=== PATIENT | male | born 1985 | race Caucasian/White ===

== ENCOUNTER 2017-09-16 21:48 | Emergency (ER) | payer MEDICAID ==
[~2017-09-16] VITALS: Ht 170.2 cm; Wt 86.2 kg
[2017-09-16 21:52] VITALS: BP 152/90
--- NOTE | 2017-09-16 22:01 | NUR ---
AMBULATED TO ER BED 3
--- NOTE | 2017-09-16 22:10 | NUR ---
31/M CAME IN W C/O COUGH, RUNNNY NOSE, FEVER, AND SORE THROAT X 1 WEEK. PT STATES HE HAD PINK-TINGED SPUTUM TODAY X 4. PT CURRENTLY AFEBRILE. ALL LUNG SOUNDS CBTA, 20RR EVEN AND UNLABORED. DENIES SOB/CP, ANY PAIN AT THIS TIME. DENIES OTHER PMH/RX, TOOK ADVIL YESTERDAY FOR FEVER WITH RELIEF OF SYMTPOMS.
--- NOTE | 2017-09-16 23:32 | NUR ---
Patient discharged with v/s stable. Written and verbal after care instructions given and explained. Patient alert, oriented and verbalized understanding of instructions. Ambulatory with steady gait. All questions addressed prior to discharge. ID band removed. Patient advised to follow up with PMD. Rx of TESSALON PERLES AND CODEINE/PROMETHAZINE given. Patient educated on indication of medication including possible reaction and side effects. Opportunity to ask questions provided and answered.
[2017-09-16 23:47] VITALS: BP 141/90
== END 2017-09-16 23:32 | disposition home or self-care (01) ==
LOC: MED 21:48
DX: J06.9 Acute upper respiratory infection, unspecified (principal)
CPT/HCPCS: 71045; 99283

== ENCOUNTER 2018-04-22 18:07 | Emergency (ER) | payer SELFPAY ==
[~2018-04-22] VITALS: Ht 172.7 cm; Wt 89.4 kg
[2018-04-22 18:09] VITALS: BP 120/78
--- NOTE | 2018-04-22 18:19 | NUR ---
PT AMBULATED WITH FAMILY TO ER LOBBY , WAITING FOR AN OPEN ER BED.
--- NOTE | 2018-04-22 19:45 | NUR ---
PATIENT IS A 32 Y/O MALE WHO PRESENTS TO THE ED C/O DIARRHEA. PT REPORTS THAT IT HAS BEEN GOING ON X3 DAYS. PT REPORTS 7/10 ACHING UPPER ABD PAIN THAT DOES NOT RADIATE. PT DENIES CP, SOB, REPORTS DIARRHEA DENIES NAUSEA/VOMITING. PT AWAKE AND ALERT, RR EVEN/UNLABORED. PT REPOSITIONED FOR COMFORT, BED IN LOWEST POSITION. ER MD DR. STREETER NOTIFIED. WILL CONTINUE TO MONITOR.
--- NOTE | 2018-04-22 20:01 | NUR ---
Dr. Carrasquillo evaluating patient at bedside.
--- NOTE | 2018-04-22 21:07 | NUR ---
Patient discharged with v/s stable. Written and verbal after care instructions given and explained. Patient alert, oriented and verbalized understanding of instructions. Ambulatory with steady gait. All questions addressed prior to discharge. ID band removed. Patient advised to follow up with PMD. Rx of FLAGYL given. Patient educated on indication of medication including possible reaction and side effects. Opportunity to ask questions provided and answered.
[2018-04-22 21:14] VITALS: BP 110/59
== END 2018-04-22 21:07 | disposition home or self-care (01) ==
LOC: MED 18:07
DX: R19.7 Diarrhea, unspecified (principal)
CPT/HCPCS: 99283

== ENCOUNTER 2018-08-05 09:11 | Emergency (ER) | payer SELFPAY ==
[~2018-08-05] VITALS: Ht 180.3 cm; Wt 75.7 kg
[2018-08-05 09:21] VITALS: BP 137/96
[2018-08-05 09:43] VITALS: BP 128/92
== END 2018-08-05 09:43 | disposition home or self-care (01) ==
LOC: MED 09:16
DX: J02.9 Acute pharyngitis, unspecified (principal); R03.0 Elevated blood-pressure reading, without diagnosis of hypertension
CPT/HCPCS: 99283

== ENCOUNTER 2020-08-12 00:45 | Emergency (ER) | payer SELFPAY ==
[~2020-08-12] VITALS: Ht 175.3 cm; Wt 90.7 kg
[2020-08-12 00:50] VITALS: BP 126/80
--- NOTE | 2020-08-12 00:53 | NUR ---
TO LOBBY A/W BED AMBULATORY
--- NOTE | 2020-08-12 01:00 | NUR ---
SEEN AND EXAMINED BY [facility] WITH ORDERS AND CARRIED OUT.
--- NOTE | 2020-08-12 01:30 | NUR ---
SENT FOR XRAY VIA W/C WITH [facility]
[2020-08-12 02:30] VITALS: BP 126/80
--- NOTE | 2020-08-12 02:30 | NUR ---
Patient discharged with v/s stable. Written and verbal after care instructions given and explained. Patient verbalized understanding. Wheel Chair Assisted by caregiver. All questions addressed prior to discharge. Advised to follow up with PMD.
== END 2020-08-12 02:30 | disposition home or self-care (01) ==
LOC: MED 00:45
DX: M25.562 Pain in left knee (principal)
CPT/HCPCS: 73562; 99283